=== PATIENT | female | born 1980 | race Caucasian/White ===

== ENCOUNTER 2018-08-30 19:15 | Emergency (ER) | payer SELFPAY ==
[2018-08-30 19:34] VITALS: BP 157/95; TEMP 97.4; O2SAT 98
--- NOTE | 2018-08-30 19:58 | ED.PDOC ---
History of Present Illness - General Chief Complaint: Lower Extremity Injury Stated Complaint: L foot pain Time Seen by Provider: 08/30/18 19:28 Source: patient Exam Limitations: no limitations - History of Present Illness Initial Comments: the patient is a 38-year-old female presenting to the emergency room secondary to pain in her distal right foot after having tripped while going up bleachers yesterday. She has bruising towards the distal aspect as well and pain in the third fourth and fifth metatarsals along with the same digits. Sensation is preserved. No gross deformity is noted. She also does have a mild ankle sprain on that side laterally. Capillary refills within normal limits. Timing/Duration: unsure, 24 hours Severity: mild Improving Factors: nothing Worsening Factors: movement Associated Symptoms: denies symptoms Allergies/Adverse Reactions: Allergies NO KNOWN ALLERGY Allergy (Verified 01/10/16 15:36) Home Medications: Ambulatory Orders Metformin HCl [Glucophage] 1,000 mg PO BID 08/30/18 Review of Systems - Review of Systems Constitutional: States: no symptoms reported EENTM: States: no symptoms reported Respiratory: States: no symptoms reported Cardiology: States: no symptoms reported Gastrointestinal/Abdominal: States: no symptoms reported Genitourinary: States: no symptoms reported Musculoskeletal: States: see HPI Skin: States: see HPI Neurological: States: no symptoms reported Endocrine: States: no symptoms reported All other Systems: No Change from Baseline Past Medical History (General) - Patient Medical History Hx Diabetes: Yes Surgical History: cholecystectomy - Vaccination History Hx Influenza Vaccination: No Hx Pneumococcal Vaccination: No - Social History Hx Tobacco Use: Yes - Female History Patient : No Family Medical History - Family History Mother Family History: Unknown Living Status: Unknown Physical Exam - Physical Exam General Appearance: Alert, Comfortable, No apparent distress Eye Exam: bilateral normal Ears, Nose, Throat: hearing grossly normal Neck: full range of motion Respiratory: no respiratory distress, no accessory muscle use Cardiovascular/Chest: normal peripheral pulses, no edema Peripheral Pulses: dorsalis pedis,right: 2+, dorsalis pedis,left: 2+, posterior tibialis,right: 2+, posterior tibialis,left: 2+ Gastrointestinal/Abdominal: other - obese Back Exam: no CVA tenderness Extremity: no pedal edema, no calf tenderness, normal capillary refill, other - see history of present illness. 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 She appears to have a mild lateral ankle sprain and she appears to have sustained a nondisplaced fracture of the proximal phalanx of the fourth toe of the left foot. The patient will be placed in a hard sole shoe for 3 weeks. Motrin can be used for discomfort. Ambulate carefully to prevent further falls. Keep routine follow-up with primary care doctor otherwise. Departure - Departure Clinical Impression: Left ankle sprain Qualifiers: Encounter type: initial encounter Involved ligament of ankle: unspecified ligament Qualified Code(s): S93.402A - Sprain of unspecified ligament of left ankle, initial encounter Toe fracture, left Qualifiers: Encounter type: initial encounter Toe: lesser toe Fracture type: closed Phalanx: proximal Fracture alignment: nondisplaced Qualified Code(s): S92.515A - Nondisplaced fracture of proximal phalanx of left lesser toe(s), initial encounter for closed fracture Disposition: Discharge to Home or Self Care Condition: Fair Departure Forms: ED Discharge - Pt. Copy, Patient Portal Self Enrollment Instructions: Toe Fracture (DC), Ankle Sprain (DC) Diet: regular diet Activity: increase activity as tolerated Referrals: Demi Arango NP [Primary Care Provider] - 1-2 Weeks Home Medications: Ambulatory Orders Metformin HCl [Glucophage] 1,000 mg PO BID 08/30/18 Additional Instructions: the patient is a 38-year-old female presenting to the emergency room secondary to pain in her left foot and ankle after having tripped while going up bleachers yesterday. She appears to have a mild lateral ankle sprain and she appears to have sustained a nondisplaced fracture of the proximal phalanx of the fourth toe of the left foot. The patient will be placed in a hard sole shoe for 3 weeks. Motrin can be used for discomfort. Ambulate carefully to prevent further falls. Keep routine follow-up with primary care doctor otherwise.
--- NOTE | 2018-08-30 20:19 | RAD ---
EXAM DESCRIPTION: Foot,Left 3 Views CLINICAL HISTORY: 38 years ,Female fell yesterday, distal bruising and pain COMPARISON: None. TECHNIQUE: LEFT foot, Three view FINDINGS: There is an acute fracture through the proximal aspect of the fourth proximal phalanx which is nondisplaced. There is also cortical irregularity along the distal aspect of the same phalanx suggesting an additional area of fracture. Minimal cortical irregularity is present along the base of the fifth proximal phalanx. Additional area of fracture is not excluded. Small joint effusion. Degenerative changes along the distal tibia. Calcaneal spurring is present. IMPRESSION: Nondisplaced fracture of the proximal aspect of the fourth proximal phalanx Areas of cortical irregularity along the distal aspect of the fourth proximal phalanx and along the base of the fifth proximal phalanx which could reflect additional areas of fracture Electronically signed by: Dariela Harley MD 08/30/2018 8:18 PM [facility]
== END 2018-08-30 20:10 | disposition home or self-care (01) ==
LOC: ER 19:15
DX: S92.515A Nondisplaced fracture of proximal phalanx of left lesser toe(s), initial encounter for closed fracture (principal); S93.402A Sprain of unspecified ligament of left ankle, initial encounter; E11.9 Type 2 diabetes mellitus without complications; W01.0XXA Fall on same level from slipping, tripping and stumbling without subsequent striking against object, initial encounter; Y92.89 Other specified places as the place of occurrence of the external cause; Z79.84 Long term (current) use of oral hypoglycemic drugs